=== PATIENT | female | born 1995 | race Asian ===

== ENCOUNTER 2016-11-15 23:35 | Inpatient (IN) | payer OTHER ==
[2016-11-16] MEDS: DEXTROSE 5%-LACTATED RINGERS 1,000 ML IV SCH ×2 (00:15→04:25)
[2016-11-16 01:00] LABS: BASOPHIL 0.6 % (0-2.0); EOSINOPHIL 2.9 % (0-4.5); MCH 26.8 pg (25.7-33.7); MCHC 32.9 g/dl (32.0-36.0); MEAN CELL VOLUME 81.5 fl (80-96); MEAN PLT VOLUME 9.5 fl (7.5-11.1); NEUTROPHILS 69.7 % (42.8-82.8); PLATELET COUNT 257 K/MM3 (134-434); RDW 17.4 % (11.6-15.6); WHITE BLOOD COUNT 16.6 K/mm3 (4.0-10.0)
[2016-11-16] MEDS ORDERED: AMPICILLIN 2 GM/100 ML BAG (PRE-DOCKED) IVPB ONE (01:00)
[2016-11-16 01:02] LABS: URINE APPEARANCE CLEAR; URINE BILIRUBIN NEGATIVE (NEGATIVE); URINE COLOR STRAW; URINE GLUCOSE (UA) NEGATIVE (NEGATIVE); URINE KETONE NEGATIVE (NEGATIVE); URINE NITRITE NEGATIVE (NEGATIVE); URINE PROTEIN NEGATIVE (NEGATIVE); URINE UROBILINOGEN NEGATIVE E.U./dl (0.2-1.0)
[2016-11-16 01:05] LABS: URINE BLOOD 3+ (NEGATIVE); URINE LEUK ESTERASE 1+ (NEGATIVE)
[2016-11-16 01:06] LABS: URINE RBC 45 /hpf (0-3); URINE WBC 26 /hpf (3-5)
[2016-11-16 01:11] LABS: INR 0.93 (0.82-1.09); PROTHROMBIN TIME (PATIENT) 10.2 SEC (9.98-11.88)
[2016-11-16 01:13] LABS: ACTIVATED PTT 27.2 SECONDS (26.9-34.4)
[2016-11-16 01:32] LABS: HIV 1 & 2 AB NEGATIVE; HIV 1 AGp24 NEGATIVE
[2016-11-16 01:35] LABS: ALBUMIN 2.5 g/dl (3.4-5.0); ALK PHOS 181 U/L (45-117); ANION GAP 13 (8-16); BILIRUBIN,TOTAL 0.2 mg/dL (0.2-1.0); CALCIUM 8.7 mg/dL (8.5-10.1); CO2 21 mmol/L (21-32); CREATININE 0.5 mg/dL (0.55-1.02); GLUCOSE,RANDOM 94 mg/dL (74-106); SGOT/AST 18 U/L (15-37); TOT PROT 6.7 g/dl (6.4-8.2)
[2016-11-16 01:37] LABS: SGPT/ALT 17 U/L (12-78)
[2016-11-16 02:25] VITALS: BMI 31.8
[2016-11-16] MEDS ORDERED: PROMETHAZINE HCL 25 MG/1 ML VIAL IVPUSH ONE (04:30)
[2016-11-16] MEDS ORDERED: BUTORPHANOL TARTRATE 1 MG/ML VIAL IVPUSH ONE (04:30)
[2016-11-16] MEDS: AMPICILLIN (PRE-DOCKED) 1 GM/100 ML BAG IVPB SCH ×3 (05:05→13:25)
[2016-11-16] MEDS ORDERED: TUBERCULIN PPD 5 TU/0.1ML SYRINGE (IN PATIENT USE ONLY) ID ONE (09:00)
[2016-11-16] MEDS ORDERED: FENTANYL/BUPIVACAINE/NS/PF - PCEA - 50 ML DISP.SYRIN EP SCH (10:15)
[2016-11-16] MEDS ORDERED: ELECTROLYTE-148 SOLN 1,000 ML IV SCH (11:30)
--- NOTE | 2016-11-16 11:41 | HP ---
Past Medical History - Primary Care Physician PCP:: Skinny Little - Admission Chief Complaint: 21 yo P0 with at EGA 38w6d admitted with SROM at 9: 30pm and spontaneous labor. History of Present Illness: care complicated by GBS(+) and followed for suspected IUGR. 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: No: Alzheimer's, CVA, Dementia, Migraine, Multiple Sclerosis, Peripheral Neuropathy, Parkinson's, Seizure, Syncope, TIA, Vertigo, Other Cardiovascular: No: AFIB, Aneurysm, Aortic Insufficiency, Aortic Stenosis, CAD, CHF, Deep Vein Thrombosis, HTN, Hyperlipdemia, UT, Mitral Insufficiency, Mitral Stenosis, Murmur, Pulmonary Hypertension, Other Pulmonary: No: Asthma, Bronchitis, Cancer, COPD, O2 Dependent, Pneumonia, Previously Intubated, Pulmonary Embolus, Pulmonary Fibrosis, Sleep Apnea, Other Gastrointestinal: No: Ascites, Cancer, Constipation, Crohn's Disease, Diverticulitis, Diverticulosis, Esophageal Varices, Gastritis, GERD, GI Bleed, Hemorrhoids, Hiatal Hernia, Inflamatory Bowel Disease, Irritable Bowel Disease, Pancreatitis, Peptic Ulcer Disease, Ulcerative Colitis, Other Hepatobiliary: No: Cirrhosis, Cholelithiasis, Cholecystitis, Choledocholithiasis , Hepatitis A, Hepatitis B, Hepatitis C, Other Renal/: No: Renal Failure, Renal Inusuff, BPH, Cancer, Hematuria, Hemodialysis , Neurogenic Bladder, Renal Calculi, UTI, Other Reproductive: No: Ectopic , Endometriosis, Fibroids, PID, Polycystic Ovary Syndrome, Postmenopausal, Other ...: 1 ...Para: 0 ...Term: 0 ...: 0 ...Spon : 0 ...Induced : 0 ...Multiple Gestation: 0 ...LMP: 02/18/16 ... Weeks Gestation by Dates: 38.6 ...EDC by Dates: 11/24/16 ...EDC by Sono: 11/24/16 Heme/Onc: No: Anemia, B12 Deficiency, Bleeding Disorder, Cancer, Current Chemotherapy, Current Radiation Therapy, Hemochromatosis, Hypercoaguable State, Myeloproliferative Synd, Sickle Cell Disease, Sickle Cell Trait, Thrombocytopenia, Other Infectious Disease: No: AIDS, C-Diff, Herpes Zoster, HIV, MRSA, STD's, Tuberculosis, VREF, Other Psych: No: Addictions, Anxiety, Bipolar, Depression, Panic, Psychosis, Schizophrenia, Other Musculoskeletal: No: Bursitis, Chronic low back pain, Hemiparesis, Hemiplegia, Osteoarthritis, Paraplegia, Other Rheumatology: No: Fibromyalgia, Gout, Lupus, Rheumatoid Arthritis, Sarcoidosis, Vasculitis, Other ENT: No: Allergic Rhinitis, Sinusitis, Other Endocrine: No: Bristol's Disease, Gokul's Disease, Diabetes Insipidus, Diabetes Mellitus, Hyperparathyroidism, Hyperthyroidism, Hypothyroidism, Osteopenia, SIADH, Other Dermatology: No: Basal Cell, Cellulitis, Eczema, Melanoma, Psoriasis, Squamous Cell, Other - Past Surgical History Past Surgical History: Yes: None Hx Myomectomy: No Hx Transabdominal Cerclage: No - Smoking History Smoking history: Never smoked Have you smoked in the past 12 months: No - Alcohol/Substance Use Hx Alcohol Use: No History of Substance Use: reports: None - Social History Usual Living Arrangement: Yes: With Spouse ADL: Independent History of Recent Travel: No Home Medications - Allergies Allergies/Adverse Reactions: Allergies Allergy/AdvReac Type Severity Reaction Status Date / Time acetaminophen [From Tylenol] Allergy Severe Swelling Verified 11/16/16 01:51 diclofenac Allergy Severe Swelling Verified 11/16/16 01:51 ibuprofen Allergy Severe Swelling Verified 11/16/16 01:51 naproxen Allergy Severe Swelling Verified 11/16/16 01:51 - Home Medications Home Medications: Ambulatory Orders Vit Calc,Iron,Folic [ Vitamins] 1 each PO DAILY 11/16/16 Family Disease History - Family Disease History Family History: Unremarkable Review of Systems Findings/Remarks: Well appearing - Review of Systems Constitutional: reports: No Symptoms Eyes: reports: No Symptoms HENT: reports: No Symptoms Neck: reports: No Symptoms Cardiovascular: reports: No Symptoms Respiratory: reports: No Symptoms Gastrointestinal: reports: No Symptoms Genitourinary: reports: No Symptoms Breasts: reports: No Symptoms Reported Musculoskeletal: reports: No Symptoms Integumentary: reports: No Symptoms Neurological: reports: No Symptoms Endocrine: reports: No Symptoms Hematology/Lymphatic: reports: No Symptoms Psychiatric: reports: No Symptoms Pain Intensity: 0 (Epidural) Physical Exam - Maternity Vital Signs: Vital Signs Temperature 98.9 F 11/16/16 11:00 Pulse Rate 123 H 11/16/16 10:30 Respiratory Rate 20 11/16/16 10:30 Blood Pressure 121/73 11/16/16 10:30 O2 Sat by Pulse Oximetry (%) 100 11/16/16 10:30 Constitutional: Yes: Well Nourished, No Distress, Calm Eyes: Yes: WNL, Conjunctiva Clear HENT: Yes: WNL, Atraumatic, Normocephalic Neck: Yes: WNL, Supple, Trachea Midline Cardiovascular: Yes: WNL, Regular Rate and Rhythm Lungs: Clear to auscultation, Normal air movement Breast(s): Yes: WNL - Abdominal Exam/OB Fundal Height: 38 Number of Fetuses: Single Presentation: Vertex Contractions: Yes Regularity: Regular Intensity: Moderate Monitor Mode: External Heart Rate (range): 140 Heart Rate Location: Midline Category: I Accelerations: Non-Uniform Decelerations: None - Vaginal Exam/OB Vaginal Bleediing: No Speculum Exam: No Dilatation (cm): 10 Effacement (%): 100 Amniotic Fluid: Yes: Clear Presentation: Vertex/Position Station: +3 - Physical Exam Musculoskeletal: Yes: WNL Extremities: Yes: WNL Edema: Yes Edema: LLE: Trace, RLE: Trace Integumentary: Yes: WNL Deep Tendon Reflex Grade: Normal +2 ...Motor Strength: WNL Psychiatric: Yes: WNL, Alert, Oriented - Labs Lab Results: CBC, BMP 11/16/16 00:30 11/16/16 00:30 Hemorrhage Risk Assessment - Risk Factors Medium Risk Factors: Yes: None High Risk Factors: Yes: None Risk Score: 1 Risk Level: Medium Risk Imaging - Results Ultrasound: Report Reviewed Assessment/Plan 21 yo P0 with at 38w6d admitted in spontaeous labor. Pt progressed to second stage of labor. FHT is category I. The patient will start pushing.
[2016-11-16 13:38] LABS: URINE MARIJUANA THC NEGATIVE ng/ml (CUTOFF=50)
[2016-11-16 14:14] LABS: ARTERIAL BLOOD GAS BASE EXCESS -3.6 meq/l (-2-2); ARTERIAL BLOOD GAS HCO3 24.1 meq/L (22-26); ARTERIAL BLOOD GAS pH 7.26 (7.35-7.45)
[2016-11-16 14:15] LABS: PT. ON O2? no
[2016-11-16 14:16] LABS: ARTERIAL BLOOD GAS PO2 23.5 mmHg (80-100)
[2016-11-16 14:17] LABS: ARTERIAL BLD GAS O2 SATURATION 36.8 % (90-98.9); ARTERIAL BLOOD GAS BASE EXCESS -2.8 meq/l (-2-2); ARTERIAL BLOOD GAS HCO3 21.9 meq/L (22-26); ARTERIAL BLOOD GAS pH 7.36 (7.35-7.45)
[2016-11-16 14:18] LABS: PT. ON O2? NO
[2016-11-16 14:19] LABS: ARTERIAL BLD GAS O2 SATURATION 64.7 % (90-98.9); ARTERIAL BLOOD GAS PO2 31.7 mmHg (80-100)
[2016-11-16] MEDS ORDERED: METHYLERGONOVINE MALEATE 0.2 MG/1 ML AMP IM PRN (15:29)
[2016-11-16] MEDS ORDERED: oxyCODONE HCL 5 MG TABLET PO PRN (15:29)
[2016-11-16] MEDS ORDERED: BENZOCAINE 28 GM HEMORRHOIDAL OINTMENT TP PRN (15:29)
[2016-11-16] MEDS ORDERED: BENZOCAINE 20% 57 GM BOTTLE TP PRN (15:29)
[2016-11-16] MEDS ORDERED: WITCH HAZEL 50% (TUCKS) 40 PAD/JAR PAD TP PRN (15:29)
[2016-11-16] MEDS ORDERED: BISACODYL 10 MG SUPP.RECT RC PRN (15:29)
[2016-11-16] MEDS ORDERED: D5W-LR W/ 20 UNITS OXYTOCIN 1,000 ML IV SCH (15:30)
--- NOTE | 2016-11-16 15:32 | PN ---
Delivery - Delivery Vaginal Delivery: No Problems, Spontaneous Type of Anesthesia: Local, Epidural Episiotomy/Laceration: Midline EBL (cc): 300 Delivery, Single - Stages of Labor Date 1st Stage Initiatied: 11/15/16 Time 1st Stage Initiated: 01:00 Date 2nd Stage Initiated: 11/16/16 Time 2nd Stage Initiated: 11:30 Date of Delivery: 11/16/16 Time of Delivery: 13:52 Date Placenta Delivered: 11/16/16 Time Placenta Delivered: 14:09 Placenta: Yes: Spontaneous, Normal Configuration - Condition of Relationship Specialist/Electroplater Helper Present: No Infant Gender: Male Position: Right, OA Total Hours ROM (Hrs/Mins): 16hrs 34min - 1 Minute Total Score: 9 5 Minutes Total Score: 9 - Feeding Plan Initial Plan: Exclusive throughout hospitalization Remarks - Remarks Remarks: Normal labor and delivery. Mother and baby are well.
[2016-11-17 07:10] LABS: BASOPHIL 0.3 % (0-2.0); EOSINOPHIL 2.6 % (0-4.5); MCH 27.2 pg (25.7-33.7); MCHC 33.2 g/dl (32.0-36.0); MEAN CELL VOLUME 81.9 fl (80-96); MEAN PLT VOLUME 9.2 fl (7.5-11.1); NEUTROPHILS 66.1 % (42.8-82.8); PLATELET COUNT 199 K/MM3 (134-434); RDW 17.9 % (11.6-15.6); WHITE BLOOD COUNT 15.2 K/mm3 (4.0-10.0)
[2016-11-17] MEDS: PRENATAL VITAMINS W/ FOLIC ACID TABLET (FP) PO SCH (09:35)
--- NOTE | 2016-11-17 20:59 | PN ---
Post Progress Note - Subjective Subjective: No complaints Post Day: 1 Type of Delivery: Vital Signs: Vital Signs Temperature 97.5 F L 11/17/16 14:00 Pulse Rate 115 H 11/17/16 14:00 Respiratory Rate 20 11/17/16 14:00 Blood Pressure 98/58 11/17/16 14:00 O2 Sat by Pulse Oximetry (%) 100 11/16/16 13:15 Breast Exam: Yes: Soft Uterus: Yes: Fundus Firm, Fundus below umbilicus, Non-tender Abdomen/GI: Yes: Abdomen soft, Passing flatus, Tolerating PO Lochia: Yes: Rubra Lochia, amount: Small Extremities: Yes: Calves non-tender, Edema Perineum: Yes: Intact, Episiotomy Activity: Ambulating - Labs Labs: CBC WBC 15.2 K/mm3 (4.0-10.0) H 11/17/16 05:45 RBC 3.45 M/mm3 (3.60-5.2) L D 11/17/16 05:45 Hgb 9.4 GM/dL (10.7-15.3) L D 11/17/16 05:45 Hct 28.2 % (32.4-45.2) L D 11/17/16 05:45 MCV 81.9 fl (80-96) 11/17/16 05:45 MCHC 33.2 g/dl (32.0-36.0) 11/17/16 05:45 RDW 17.9 % (11.6-15.6) H 11/17/16 05:45 Plt Count 199 K/MM3 (134-434) D 11/17/16 05:45 MPV 9.2 fl (7.5-11.1) 11/17/16 05:45 Neutrophils % 66.1 % (42.8-82.8) 11/17/16 05:45 Lymphocytes % 27.2 % (8-40) D 11/17/16 05:45 Monocytes % 3.8 % (3.8-10.2) 11/17/16 05:45 Eosinophils % 2.6 % (0-4.5) 11/17/16 05:45 Basophils % 0.3 % (0-2.0) 11/17/16 05:45 Assessment/Plan 21yo P1 s/p , doing well stable, afebrile. care instructions reviewed. Continue routine care. Ambulation encouraged Discharge instruction reviewed.
[2016-11-17 21:31] VITALS: TEMP 97.7
[2016-11-17] MEDS ORDERED: SENNOSIDES/DOCUSATE COMBO (SENNA PLUS) TABLET (UD) PO PRN (22:00)
[2016-11-18] MEDS: PRENATAL VITAMINS W/ FOLIC ACID TABLET (FP) PO SCH (09:32)
[2016-11-18 10:31] VITALS: BP 107/72; PULSE 94
== END 2016-11-18 13:30 | disposition home or self-care (01) | DRG 775 ==
LOC: JDEL 23:35 → JLDR 11-16 00:10 → J3W 11-16 15:38
PROVIDERS: ADMIT Obstetrics & Gynecology; ATTEND Obstetrics & Gynecology
PROC: 10E0XZZ Delivery of Products of Conception, External Approach (ICD-10-PCS; principal; 2016-11-16)
PROC: 0W8NXZZ Division of Female Perineum, External Approach (ICD-10-PCS; 2016-11-16)
DX: O99.824 Streptococcus B carrier state complicating childbirth (principal); Z3A.39 39 weeks gestation of pregnancy; Z37.0 Single live birth
CPT/HCPCS: 36415; 36600; 59409; 80053; 80307; 81003; 81015; 82803; 85025; 85610; 85730; 86593; 86762; 86850; 86900; 86901; 87340; 87389